=== PATIENT | male | born 1960 | race African-American/Black ===

== ENCOUNTER 2020-05-22 20:53 | Emergency (ER) | payer BC, OTHER ==
[~2020-05-22] VITALS: Ht 175.3 cm; Wt 85.3 kg
[2020-05-22 21:05] VITALS: BP 147/90
--- NOTE | 2020-05-22 21:05 | NUR ---
ED Nurse Note: pt walked into ED from home c/o left index finger laceration done by accident with razor today.
--- NOTE | 2020-05-22 21:30 | NUR ---
ED Nurse Note: ASHLEY Torres at bedside
--- NOTE | 2020-05-22 21:40 | NUR ---
ED Nurse Note: Wound cleansed with NS and iodine per PA orders
--- NOTE | 2020-05-22 22:00 | NUR ---
ED Nurse Note: Stitches placed by PA and wrapped with dry gauze by EMT staff.
--- NOTE | 2020-05-22 22:06 | Emergency Room Report ---
History of Present Illness General Chief Complaint: Laceration Source: Patient Present Illness HPI 59-year-old male with no no signal past medical history here due to a laceration to the left index finger that happened with razor. 2 cm laceration superficially noted medial side of left index finger with active bleeding. Patient has full range of motion of the affected side. Has full strength, and is neurovascularly intact. Denies taking any blood thinners. Has not taken medication for symptom relief. Denies chest pain, shortness of breath, fever and chills. 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 Patient History Past Medical History: see triage record Past Surgical History: none Pertinent Family History: none Immunizations: UTD Reviewed Nursing Documentation: PMH: Agreed; PSxH: Agreed Nursing Documentation-PMH Hx Hypertension: Yes Hx Diabetes: Yes Hx Cancer: Yes - lymphoma Review of Systems All Other Systems: negative except mentioned in HPI Physical Exam Vital Signs Date Time Temp Pulse Resp B/P (MAP) Pulse Ox O2 Delivery O2 Flow Rate FiO2 05/22/20 21:00 98.1 91 18 198/96 (130) 99 Room Air Sp02 EP Interpretation: reviewed, abnormal - Elevated blood pressure which patient reports is due to stress General Appearance: no apparent distress, alert, GCS 15, non-toxic Head: normocephalic, atraumatic Eyes: bilateral eye normal inspection, bilateral eye PERRL ENT: hearing grossly normal, normal pharynx, no angioedema, normal voice Neck: full range of motion, supple/symm/no masses Respiratory: chest non-tender, lungs clear, normal breath sounds, speaking full sentences Cardiovascular #1: regular rate, rhythm, no edema Cardiovascular #2: 2+ carotid (R), 2+ carotid (L), 2+ radial (R), 2+ radial (L), 2+ dorsalis pedis (R), 2+ dorsalis pedis (L) Gastrointestinal: normal bowel sounds, non tender, soft, non-distended, no guarding, no rebound Musculoskeletal: back normal, other - Patient is neurovascularly intact, has r kyara of motion of the affected side Neurologic: alert, motor strength/tone normal, oriented x3, sensory intact, responsive, speech normal Psychiatric: judgement/insight normal, memory normal, mood/affect normal, no suicidal/homicidal ideation Skin: laceration - Left index finger Lymphatic: no adenopathy Procedures Laceration/Wound Repair Laceration/Wound Repair : Consent: Verbal Wound Location: upper extremity - Left index finger Wound's Depth, Shape: superficial Wound Length (cm): 2 Wound Explored: contaminated Betadine Prep?: Yes Anesthesia: 1% Lidocaine Volume Anesthetic (ccs): 10 Wound Repaired With: sutures Suture Size/Type: 4:0, proline Number of Sutures: 10 Layer Closure?: Yes Sterile Dressing Applied?: Yes Splint Applied?: Yes Type of Splint Applied: metal finger splint Patient Tolerated: Well Complications: None Medical Decision Making PA Attestation All diagnoses and treatment plans were reviewed and discussed with my supervising physician Dr. Brown Diagnostic Impression: Primary Impression: Laceration of finger ER Course 59-year-old male with no no signal past medical history here due to a laceration to the left index finger that happened with razor. 2 cm laceration superficially noted medial side of left index finger with active bleeding. P atient has full range of motion of the affected side. Has full strength, and is neurovascularly intact. Denies taking any blood thinners. Has not taken medication for symptom relief. Denies chest pain, shortness of breath, fever and chills. Ddx considered but are not limited to : Superficial laceration, deep laceration, tendon involvement with laceration, laceration with foreign body Vital signs: are WNL, pt. is afebrile H&PE are most consistent with: Superficial laceration of finger ORDERS: At this time no x-ray needed as it is very superficial only in the finger no foreign body. Mupirocin ointment, Tylenol 3, ibuprofen ED INTERVENTIONS: Ibuprofen as patient is driving, and cannot give any medication at this time will cause drowsiness, wound closure and dressed DISCHARGE: At this time pt. is stable for d/c to home. Will provide printed patient care instructions, and any necessary prescriptions. Care plan and follow up instructions have been discussed with the patient prior to discharge. Patient take medication as directed, sutures to be removed in 7 to 10 days, if worsening symptoms return to the emergency room Last Vital Signs Date Time Temp Pulse Resp B/P (MAP) Pulse Ox O2 Delivery O2 Flow Rate FiO2 05/22/20 21:00 98.1 91 18 198/96 (130) 99 Room Air Disposition: HOME, SELF-CARE Condition: Stable Scripts Mupirocin* (MUPIROCIN*) 22 Gm Oint...g. 1 APPLIC TOPIC THREE TIMES A DAY, #22 GM Prov: Brian Kelley 05/22/20 Acetaminophen With Codeine (T#3) (TYLENOL #3 TAB*) Y Tab 1 TAB ORAL Q8HR PRN for For Pain for 3 Days, #9 TAB Prov: Brian Kelley 05/22/20 Ibuprofen* (MOTRIN*) 600 Mg Tablet 600 MG ORAL Q8H PRN for FOR PAIN, #30 TAB 0 Refills Prov: Brian Kelley 05/22/20 Patient Instructions: Laceration Care, Adult Additional Instructions: Take medication as directed, follow-up with your primary care provider, if worsening symptoms return to emergency room for sutures to be removed in 7 to 10 days Brian Kelley May 22, 2020 22:06
[2020-05-22] MEDS ORDERED: IBUPROFEN600 M1 ORAL (22:08)
[2020-05-22] MEDS ORDERED: MUPIROCIN22 GM TOPIC (22:08)
[2020-05-22] MEDS ORDERED: ACETAMINOPHEN-1 EAC1 ORAL (22:08)
[2020-05-22 22:22] VITALS: BP 158/76
--- NOTE | 2020-05-22 22:22 | NUR ---
ER DISCHARGE NOTE: Patient is cleared to be discharged per ERMD, pt is aox4, on room air, with stable vital signs. Stitches placed by PA and gauze applied by EMT. Pt was given dc and paper prescription with instructions to f/u with PMD or return to ED in 7-10 days for stitch removal. pt was able to verbalize understanding, pt id band removed. pt is able to ambulate with steady gait. pt took all belongings.
== END 2020-05-22 22:22 | disposition home or self-care (01) ==
LOC: EMR 21:30
DX: S61.211A Laceration without foreign body of left index finger without damage to nail, initial encounter (principal); W26.8XXA Contact with other sharp object(s), not elsewhere classified, initial encounter; Y92.9 Unspecified place or not applicable; E11.9 Type 2 diabetes mellitus without complications; I10 Essential (primary) hypertension; Z85.72 Personal history of non-Hodgkin lymphomas; Z88.0 Allergy status to penicillin
CPT/HCPCS: 99282